=== PATIENT | female | born 1975 | race Caucasian/White ===

== ENCOUNTER 2022-09-27 08:28 | Day surgery (SDC) | payer OTHER ==
[2022-09-27] MEDS ORDERED: Propofol 200 MG/20 ML SDV IV ONE (08:29)
[2022-09-27] MEDS ORDERED: Lidocaine 1% 5 ML VIAL INJECT ONE (08:29)
[2022-09-27] MEDS ORDERED: Glycopyrrolate 0.2 MG/ML 5 ML MDV IV ONE (08:29)
[2022-09-27] MEDS ORDERED: Lactated Ringers 1,000 ML IV SCH (08:30)
[2022-09-27] MEDS ORDERED: Sodium Chloride 0.9% 10 ML Syringe FLUSH PRN (08:30)
== END 2022-09-27 12:07 | disposition home or self-care (01) ==
LOC: FB.SDS 08:28
PROVIDERS: ATTEND Surgery
DX: K21.00 Gastro-esophageal reflux disease with esophagitis, without bleeding (principal); K31.89 Other diseases of stomach and duodenum; K52.9 Noninfective gastroenteritis and colitis, unspecified; F32.A Depression, unspecified; E78.5 Hyperlipidemia, unspecified; G43.909 Migraine, unspecified, not intractable, without status migrainosus; K43.2 Incisional hernia without obstruction or gangrene; Z88.8 Allergy status to other drugs, medicaments and biological substances; Z88.1 Allergy status to other antibiotic agents; Z88.5 Allergy status to narcotic agent; Z79.899 Other long term (current) drug therapy; Z90.49 Acquired absence of other specified parts of digestive tract; Z98.890 Other specified postprocedural states; Z98.1 Arthrodesis status; Z90.710 Acquired absence of both cervix and uterus; Z87.891 Personal history of nicotine dependence
CPT/HCPCS: 00813-QZ; 88305; 88342; J2704; J3490; J7120

== ENCOUNTER 2023-01-25 02:15 | Emergency (ER) | payer OTHER | END 2023-01-25 03:10 | disposition home or self-care (01) | LOC: FB.ED 02:15 | DX: K21.9 Gastro-esophageal reflux disease without esophagitis (principal); Z88.1 Allergy status to other antibiotic agents; Z88.5 Allergy status to narcotic agent; Z88.8 Allergy status to other drugs, medicaments and biological substances; Z72.0 Tobacco use | CPT/HCPCS: 71045; 99283 ==